=== PATIENT | female | born 1985 | race Caucasian/White ===

== ENCOUNTER 2018-11-05 06:48 | Day surgery (SDC) | payer OTHER ==
[2018-11-05] MEDS ORDERED: PROPOFOL 20 ML ×2 (08:34→09:22)
[2018-11-05] MEDS ORDERED: FENTAnyl 50 MCG/ML VIAL (08:34)
[2018-11-05] MEDS ORDERED: ONDANSETRON 4 MG INJ IV (09:00)
== END 2018-11-05 10:17 | disposition home or self-care (01) ==
LOC: GIL 06:48
DX: R19.7 Diarrhea, unspecified (principal); K51.90 Ulcerative colitis, unspecified, without complications
CPT/HCPCS: 43239; 84703; 88305; 88312